=== PATIENT | male | born 1955 | race Caucasian/White ===

== ENCOUNTER 2016-06-11 12:42 | Outpatient (CLI) | payer BC ==
--- NOTE | 2016-06-12 07:50 | RAD ---
CERVICAL SPINE 5 VIEWS: DATE: 06/11/16. No fracture or dislocation was seen. There is prominent disk space narrowing at C5-C6 and C6-C7 inez ng with anterior osteophytes. There is no malalignment. The C1 to dens distance is normal and the soft tissues are normal in thickness. Ossification of the ligamentum nuchae is present. Oblique views show neural foraminal encroachment, particularly at C5-C6 on the right and to a lesser extent on the left if these oblique views are labeled correctly. Looking at the AP film, I would h ave guessed worse disease on the left. At any rate, the finding suggests further workup is needed a s the possibility of foraminal stenosis is definitely present and there may be some posterior osteop hytes at C5-C6. This could potentially impinge upon the cord and cause central canal stenosis. IMPRESSION: Degenerative disk disease at C5-C6 and C6-C7 with most prominent foraminal changes at C5-C6, presuma beth on the right. MRI recommended. POS: HOME
== END 2016-06-11 12:43 | disposition home or self-care (01) ==
LOC: BURRAD 12:42
PROVIDERS: ATTEND Family Medicine Sports Medicine
DX: M50.00 Cervical disc disorder with myelopathy, unspecified cervical region (principal); M50.322 Other cervical disc degeneration at C5-C6 level; M50.323 Other cervical disc degeneration at C6-C7 level
CPT/HCPCS: 72050

== ENCOUNTER 2017-11-07 11:39 | Outpatient (CLI) | payer BC ==
--- NOTE | 2017-11-07 13:12 | RAD ---
LUMBAR SPINE RADIOGRAPHS: Date: 11/07/17 PROVIDED CLINICAL HISTORY: Lumbosacral intervertebral disc displacement. FINDINGS: Five non-rib bearing lumbar-type vertebral bodies are present. There is Grade I anterolisthesis of L4 on L5. Lumbar alignment appears otherwise normal. Vertebral body heights appear preserved. Diffuse i ntervertebral disc space height loss with end plate degenerative changes. Findings are most conspicuo us at L5-S1. Lower lumbar spine facet arthritis is seen. The oblique views demonstrate no evidence fo r pars defects. Vascular calcification is noted. Pedicles appear intact. Sacroiliac joints appear sym metric. IMPRESSION: Lower lumbar disc and facet degeneration. POS: [facility]
== END 2017-11-07 11:40 | disposition home or self-care (01) ==
LOC: BURRAD 11:39
PROVIDERS: ATTEND Family Medicine Sports Medicine
DX: M51.26 Other intervertebral disc displacement, lumbar region (principal); M47.896 Other spondylosis, lumbar region
CPT/HCPCS: 72100